=== PATIENT | female | born 1955 | race Caucasian/White ===

== ENCOUNTER → 2018-07-11 | Outpatient (CLI) | payer BC ==
--- NOTE | 2018-07-12 11:03 | MM ---
Reason for exam: screening (asymptomatic). Last mammogram was performed 3 years and 1 month ago. History: Patient is postmenopausal. Physical Findings: A clinical breast exam by your physician is recommended on an annual basis and results should be correlated with mammographic findings. MG 3D Screening Mammo W/Cad Bilateral CC and MLO view(s) were taken. Prior study comparison: June 12, 2015, bilateral MG screening mammo w CAD. The breast tissue is heterogeneously dense. This may lower the sensitivity of mammography. Tiny isodense circumscribed nodule medial and anterior. Not seen previously. Nodular asymmetric density central right CC view may persist on the 3D images. Mole on the left. ASSESSMENT: Incomplete: need additional imaging evaluation, BI-RAD 0 RECOMMENDATION: Special view mammogram of the right breast. (3D spots) If lesion persists on supplemental views, image directed ultrasound is recommended. [facility] will attempt to contact patient to return for supplemental views and ultrasound if indicated.
== END | disposition home or self-care (01) ==
LOC: RADMAMWWP 16:28
PROVIDERS: ATTEND Pediatrics
DX: Z12.31 Encounter for screening mammogram for malignant neoplasm of breast (principal)
CPT/HCPCS: 77063; 77067

== ENCOUNTER → 2018-08-26 | Outpatient (CLI) | payer BC ==
--- NOTE | 2018-08-29 11:58 | MM ---
Reason for exam: additional evaluation requested from abnormal screening. Last mammogram was performed 1 month ago. History: Patient is postmenopausal. Physical Findings: Nurse did not find any significant physical abnormalities on exam. MG 3D Work Up W/Cad RT CC and LM view(s) were taken of the right breast. Prior study comparison: July 11, 2018, bilateral MG 3d screening mammo w/cad. June 12, 2015, bilateral MG screening mammo w CAD. The breast tissue is heterogeneously dense. This may lower the sensitivity of mammography. The questioned asymmetry does not persist on additional views. These results were verbally communicated with the patient and result sheet given to the patient on 08/26/18. ASSESSMENT: Negative, BI-RAD 1 RECOMMENDATION: Return to routine screening mammogram schedule for both breasts.
== END | disposition home or self-care (01) ==
LOC: RADMAMWWP 08:46
PROVIDERS: ATTEND Pediatrics
DX: R92.8 Other abnormal and inconclusive findings on diagnostic imaging of breast (principal)
CPT/HCPCS: 77061; 77065

== ENCOUNTER → 2019-08-11 | Outpatient (CLI) | payer BC | END | disposition home or self-care (01) | LOC: LABWHC1 11:29 | PROVIDERS: ATTEND Pediatrics | DX: Z20.828 Contact with and (suspected) exposure to other viral communicable diseases (principal) ==

== ENCOUNTER 2021-09-02 03:54 | Inpatient (IN) | payer BC ==
--- NOTE | 2021-09-02 04:14 | ED ---
Chest Pain HPI - General Chief Complaint: Chest Pain Stated Complaint: Chest Pain Time Seen by Provider: 09/02/21 04:13 Source: patient, family Mode of arrival: ambulatory Limitations: no limitations - Related Data Home Medications Medication Instructions Recorded Confirmed Cetirizine HCl [Zyrtec] 10 mg PO DAILY 04/19/15 04/29/15 Multivit with Calcium,Iron,Min 1 tab PO DAILY 04/19/15 04/29/15 [Women's Daily Multivitamin] Previous Rx's Medication Instructions Recorded Acetaminophen-Codeine 300-30mg 1 each PO Q4HR PRN #30 tab 04/30/15 [Tylenol w/codeine #3] Ibuprofen [Motrin] 600 mg PO Q6HR PRN #60 tab 04/30/15 Allergies Allergy/AdvReac Type Severity Reaction Status Date / Time bee pollen Allergy Anaphylaxis Verified 09/02/21 04:02 Latex, Natural Rubber Allergy mouth Verified 09/02/21 04:02 swelling, dyspnea sulfamethoxazole Allergy Rash/Hives Verified 09/02/21 04:02 [From Bactrim] trimethoprim [From Bactrim] Allergy Rash/Hives Verified 09/02/21 04:02 morphine AdvReac Nausea & Verified 09/02/21 04:02 Vomiting Review of Systems ROS Statement: Those systems with pertinent positive or pertinent negative responses have been documented in the HPI. ROS Other: All systems not noted in ROS Statement are negative. EKG Findings - EKG Comments: EKG Findings:: EKG shows sinus rhythm 64 RI 190 QRS 90 QTC 4:[address] elevation 2 3 aVF Past Medical History Past Medical History: Osteoarthritis (OA) Additional Past Medical History / Comment(s): hx. irregular heartbeat-used to take toprol History of Any Multi-Drug Resistant Organisms: None Reported Past Surgical History: Orthopedic Surgery Additional Past Surgical History / Comment(s): arthroscopies knees, D & C x2 Past Anesthesia/Blood Transfusion Reactions: No Reported Reaction Past Psychological History: No Psychological Hx Reported Smoking Status: Never smoker Past Alcohol Use History: Occasional Past Drug Use History: None Reported - Past Family History Mother Family Medical History: No Reported History General Exam Limitations: no limitations Course Vital Signs 09/02/21 03:58 Temperature 97.8 F Pulse Rate 63 Respiratory 20 Rate Blood Pressure 166/77 O2 Sat by Pulse 100 Oximetry Critical Care Time Critical Care Time: Yes Total Critical Care Time: 31 Disposition Clinical Impression: ST elevation myocardial infarction (STEMI), Chest pain Disposition: ADMITTED IP TO THIS HOSP Condition: Serious Is patient prescribed a controlled substance at d/c from ED?: No Referrals: Terrance Mercer MD [Primary Care Provider] - 1-2 days
[2021-09-02] MEDS ORDERED: ASPIRIN 81 MG PO STA (04:19)
[2021-09-02] MEDS ORDERED: HEPARIN SODIUM 1,000 UN/ML (10ML VL) IV ONE ×2 (04:19→05:20)
[2021-09-02] MEDS ORDERED: NITROGLYCERIN SL TABS 0.4 MG TAB SUBLINGUAL PRN ×2 (04:19→06:49)
[2021-09-02] MEDS ORDERED: HEPARIN SOD,PORK IN 0.45% NACL 25,000 UNIT in 0.45% NACL 1 250ML.BAG IV SCH (04:30)
[2021-09-02 04:35] LABS: Basophils % (A) 1 %; Eosinophils # (A) 0.1 k/uL (0-0.7); Eosinophils % (A) 2 %; Lymphocytes # (A) 2.7 k/uL (1.0-4.8); Lymphocytes % (A) 39 %; MCH 30.1 pg (25.0-35.0); MCHC 34.1 g/dL (31.0-37.0); MCV 88.2 fL (80.0-100.0); Monocytes # (A) 0.3 k/uL (0-1.0); Monocytes % (A) 5 %; Neutrophils # (A) 3.6 k/uL (1.3-7.7); Neutrophils % (A) 51 %; Platelet Count 286 k/uL (150-450); RBC 4.65 m/uL (3.80-5.40); RDW 13.2 % (11.5-15.5)
[2021-09-02 04:43] LABS: INR 0.9 (<1.2); Partial Thromboplastin Time 24.4 sec (22.0-30.0); Prothrombin Time 10.3 sec (9.0-12.0)
[2021-09-02 04:50] LABS: ALT 29 U/L (4-34); AST 40 U/L (14-36); African American GFR (CKD) >90 (>60 ml/min/1.73 sqM); Albumin 4.6 g/dL (3.5-5.0); Alkaline Phosphatase 44 U/L (38-126); Anion Gap 7 mmol/L; Blood Urea Nitrogen 18 mg/dL (7-17); Calcium 9.3 mg/dL (8.4-10.2); Carbon Dioxide 27 mmol/L (22-30); Chloride 104 mmol/L (98-107); Glucose 115 mg/dL (74-99); Lipase 105 U/L (23-300); Magnesium 1.9 mg/dL (1.6-2.3); Non-African American GFR(CKD) >90 (>60 ml/min/1.73 sqM); Potassium 4.1 mmol/L (3.5-5.1); Sodium 138 mmol/L (137-145); Total Bilirubin 0.6 mg/dL (0.2-1.3); Total Protein 7.6 g/dL (6.3-8.2)
[2021-09-02] MEDS ORDERED: IV FLUID CONTINUATION 1,000 ML IV ONE (04:52)
[2021-09-02] MEDS ORDERED: VERAPAMIL 2.5 MG/ML 2 ML AMP ONE (04:54)
[2021-09-02] MEDS ORDERED: HEPARIN SODIUM 1,000 UN/ML (10ML VL) ONE (04:54)
[2021-09-02] MEDS ORDERED: fentaNYL (PF) 50 MCG/ML 2 ML AMP ONE (04:54)
[2021-09-02] MEDS ORDERED: LIDOCAINE 1% INJ 10MG/ML (5 ML VIAL-PF) SQ ONE (05:07)
[2021-09-02] MEDS ORDERED: fentaNYL (PF) 50 MCG/ML 2 ML AMP IV ONE (05:08)
[2021-09-02] MEDS ORDERED: LIDOCAINE 1% INJ 10MG/ML (30 ML VIAL-PF) SQ ONE (05:13)
--- NOTE | 2021-09-02 05:16 | XR ---
EXAM: XR Chest, 1 View CLINICAL HISTORY: chest pain TECHNIQUE: Frontal view of the chest. COMPARISON: No relevant prior studies available. FINDINGS: Lungs: Unremarkable. No consolidation. Pleural space: Unremarkable. No pneumothorax. Heart: Unremarkable. No cardiomegaly. Mediastinum: Unremarkable. Bones/joints: Unremarkable. IMPRESSION: No radiographic evidence of acute cardiopulmonary process, allowing for portable technique.
[2021-09-02] MEDS ORDERED: PRASUGREL 10 MG TAB PO ONE (05:21)
[2021-09-02] MEDS ORDERED: PRASUGREL 10 MG TAB ONE (05:21)
[2021-09-02] MEDS ORDERED: NITROGLYCERIN 1000MCG/10ML SYRINGE INTRACORON ONE (05:24)
[2021-09-02] MEDS ORDERED: NITROGLYCERIN SL TABS 0.4 MG TAB SUBLINGUAL ONE ×2 (05:40→05:41)
[2021-09-02] MEDS ORDERED: IOPAMIDOL-370 125ML BTL INJ ONE (05:41)
[2021-09-02] MEDS ORDERED: IOPAMIDOL-370 100ML BTL INJ ONE (06:07)
--- NOTE | 2021-09-02 06:28 | P.CRDCN ---
History of Present Illness Consult date: 09/02/21 History of present illness: History of Present Illness: The patient is a 66-year-old male with no history of cardiac disease who presented to the emergency room with symptoms of chest discomfort. The discomfort started 3 days ago, worse today on presentation to the emergency room she had ST segment elevation in the inferior leads consistent inferior wall myocardial infarction. She had mild dyspnea with it but no dizziness, palpitations or syncope. She is usually active physically without any exertional chest discomfort or dyspnea. She has no PND, orthopnea or peripheral edema. She has no history of hypertension, hyperlipidemia or diabetes. She is a nonsmoker. She is a family history of premature CAD. Medications: Zyrtec on a when necessary basis and Motrin on a when necessary basis Review of Systems: Respiratory: No history of asthma, bronchitis or recent cough. GI: No nausea or vomiting . No history of peptic ulcer disease. No recent GI bleed. : No hematuria or dysuria. Nervous System: No stroke or seizure. Physical Examination: 66-year-old female alert and oriented in mild discomfort, evaluated in the cardiac catheterization laboratory ,Blood pressure 172/70, Heart rate 72 Head: Normocephalic. Eyes: Sclerae nonicteric. Neck: Good carotid upstroke, no bruit, no jugular venous distention. Lungs: Clear to auscultation. Heart: Regular rate and rhythm, S1-S2, no S3, no rub. No murmur. Abdomen: Soft nontender, positive bowel sounds no organomegaly. Extremities: No edema, intact distal pulses. Labs: Hemoglobin of 14, BUN 18, creatinine 0.7, troponin less than 0.012, NT proBNP 402 EKG: Sinus mechanism with ST segment elevation in leads 2, [address] segment depression and T-wave inversion in 1 and aVL and V2 and V3 consistent with inferior posterior myocardial infarction. Impression: 1. Acute inferior wall myocardial infarction 2. History of ALLERGY Plan: 1. Proceed with emergent cardiac catheterization, the procedure as well as the risks and the complications were discussed with the patient and she was in full understanding and agreement 2. Obtain an echocardiogram with Doppler 3. Aggressive coronary risks modification 4. Depending on her progress and the finding of her cardiac catheterization further recommendations will be made 5. Thank you for this consult we will follow with you Past Medical History Past Medical History: Osteoarthritis (OA) Additional Past Medical History / Comment(s): hx. irregular heartbeat-used to take toprol History of Any Multi-Drug Resistant Organisms: None Reported Past Surgical History: Orthopedic Surgery Additional Past Surgical History / Comment(s): arthroscopies knees, D & C x2 Past Anesthesia/Blood Transfusion Reactions: No Reported Reaction Past Psychological History: No Psychological Hx Reported Smoking Status: Never smoker Past Alcohol Use History: Occasional Past Drug Use History: None Reported - Past Family History Mother Family Medical History: No Reported History Medications and Allergies Home Medications Medication Instructions Recorded Confirmed Type Cetirizine HCl [Zyrtec] 10 mg PO DAILY 04/19/15 04/29/15 History Multivit with Calcium,Iron,Min 1 tab PO DAILY 04/19/15 04/29/15 History [Women's Daily Multivitamin] Acetaminophen-Codeine 300-30mg 1 each PO Q4HR PRN #30 tab 04/30/15 Rx [Tylenol w/codeine #3] Ibuprofen [Motrin] 600 mg PO Q6HR PRN #60 tab 04/30/15 Rx Allergies Allergy/AdvReac Type Severity Reaction Status Date / Time bee pollen Allergy Anaphylaxis Verified 09/02/21 04:02 Latex, Natural Rubber Allergy mouth Verified 09/02/21 04:02 swelling, dyspnea sulfamethoxazole Allergy Rash/Hives Verified 09/02/21 04:02 [From Bactrim] trimethoprim [From Bactrim] Allergy Rash/Hives Verified 09/02/21 04:02 morphine AdvReac Nausea & Verified 09/02/21 04:02 Vomiting Physical Exam Vitals: Vital Signs Temp Pulse Resp BP Pulse Ox 09/02/21 04:40 75 14 172/75 09/02/21 04:35 72 16 172/75 09/02/21 04:30 73 18 195/88 09/02/21 04:25 195/88 09/02/21 04:23 195/88 09/02/21 03:58 97.8 F 63 20 166/77 100 Intake and Output 09/01/21 09/01/21 09/02/21 14:59 22:59 06:59 Intake Total 100 Balance 100 Intake: IV 100 Other: Weight 67.585 kg Results 09/02/21 04:24 09/02/21 04:24 Cardiac Enzymes 09/02/21 09/02/21 Range/Units 04:24 04:24 AST 40 H (14-36) U/L Troponin I <0.012 (0.000-0.034) ng/mL Coagulation 09/02/21 Range/Units 04:24 PT 10.3 (9.0-12.0) sec APTT 24.4 (22.0-30.0) sec CBC 09/02/21 Range/Units 04:24 WBC 7.0 (3.8-10.6) k/uL RBC 4.65 (3.80-5.40) m/uL Hgb 14.0 (11.4-16.0) gm/dL Hct 41.0 (34.0-46.0) % Plt Count 286 (150-450) k/uL Comprehensive Metabolic Panel 09/02/21 Range/Units 04:24 Sodium 138 (137-145) mmol/L Potassium 4.1 (3.5-5.1) mmol/L Chloride 104 (98-107) mmol/L Carbon Dioxide 27 (22-30) mmol/L BUN 18 H (7-17) mg/dL Creatinine 0.70 (0.52-1.04) mg/dL Glucose 115 H (74-99) mg/dL Calcium 9.3 (8.4-10.2) mg/dL AST 40 H (14-36) U/L ALT 29 (4-34) U/L Alkaline Phosphatase 44 (38-126) U/L Total Protein 7.6 (6.3-8.2) g/dL Albumin 4.6 (3.5-5.0) g/dL Current Medications Generic Name Dose Route Start Last Admin Trade Name Freq PRN Reason Stop Dose Admin Aspirin 325 mg 09/03/21 09:00 Aspirin 325 Mg Tab PO DAILY [facility] Atorvastatin Calcium 80 mg 09/02/21 09:00 Atorvastatin 80 Mg Tab PO DAILY [facility] Heparin Sodium/Sodium Chloride 250 mls @ 8.11 mls/hr 09/02/21 04:30 25,000 unit/ Sodium Chloride IV .Q24H [facility] Protocol 12 UNITS/KG/HR Nitroglycerin 0.4 mg 09/02/21 04:19 Nitroglycerin Sl Tabs 0.4 Mg Tab SUBLINGUAL Q5M PRN Chest Pain Intake and Output 09/01/21 09/01/21 09/02/21 14:59 22:59 06:59 Intake Total 100 Balance 100 Intake: IV 100 Other: Weight 67.585 kg Patient Weight 09/02/21 06:59 Weight 67.585 kg 09/02/21 04:24 09/02/21 04:24
--- NOTE | 2021-09-02 06:38 | P.CARDCATH ---
Date of Procedure: 09/02/21 Description of Procedure: Cardiac Catheterization: The patient is a 66-year-old female with no prior cardiac history who presented with an acute inferior wall myocardial infarction Recommendations were made regarding cardiac catheterization, the risks and the complications were discussed with the patient who is in full understanding and agreement. 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 Using Xylocaine Anesthesia and Seldinger technique, a 6-Mexican sheath was introduced in the right femoral artery, attempt to cannulate right radial artery was unsuccessful because of severe vasospasm . Subsequently, selective coronary angiography was performed using a 6-Mexican 4 bend right Gayle guiding catheter and left Gayle diagnostic catheter. Multiple views of the coronary artery including hemiaxial views were obtained. The 6-Mexican Pigtail catheter was used to cross the aortic valve and LVEDP was calculated. Following that, catheter and sheath were removed. Hemostasis was obtained with deployment of an Angio-Seal . There was no immediate complication. Patient was returned to room in stable condition. Of note, the patient received a total of 5000 units of intravenous heparin as well as loading dose of Effient. There was no immediate complications. Her ACT was monitored. Her chest discomfort and EKG changes improved. Findings: Left main: This is a size vessel, bifurcating into LAD and left circumflex, left main has no high-grade stenosis LAD: This is a size vessel, reaching to the apex, tapers down in the distal third gives rise to 3 diagonal branch. The proximal LAD has a percent stenosis there is another 50-60's percent stenosis in the mid segment, the rest of the vessel has no high-grade stenosis. Left circumflex: This is a nondominant vessel giving rise to 2 obtuse marginal branch left circumflex has no high-grade stenosis. RCA: This is a large dominant vessel bifurcating into PDA and PLV. Proximal RCA has a 60% plaque, the midsegment is diffusely diseased with an area of 99% stenosis in the distal segment has a 70% stenosis Left Ventriculogram: Not performed Hemodynamics: There was no gradient across the aortic valve Angioplasty: Using the 6-Mexican 4 bend right Gayle guiding catheter and after cannulating the right coronary ostium a 0.014 BMW J-wire was introduced and positioned distally subsequently a 2.5 x 12 mm Treck balloon was advanced and when inflation at 8 stephan was done after removing the balloon 3.0 x 38 mm Xience emmanuel point stent was deployed at 16 stephan, a 3.25 x 23 mm Xience emmanuel point stent was deployed proximal to the first one and dilated at 16 stephan and subsequently a 3.0 x 23 mm Xience emmanuel point was deployed distal to the first one and dilated at 16 stephan. After removing the balloon a [place] Eye IVUS catheter was introduced and imaging was performed, after removing the catheter is 3.75 x 20 mm NC Treck was advanced and multiple inflation at a maximum of 10 stephan were performed. After the last inflation and after appropriate wait the balloon and the wire were withdrawn back in the guiding catheter and images were performed, which revealed stable successful stenting, at that time the guiding catheter was removed and images of the left coronary system were obtained. Conclusion: 1. Subtotally occluded mid RCA with long segment of disease, post stenting with reduction of the stenosis from 99% to 0% 2. Moderate to significant disease in the proximal and mid LAD 3. No evidence of high-grade stenosis in the left circumflex Recommendations: The patient will be continued on dual antiplatelet treatment with a combination of aspirin and Effient for at least 1 year without any disruption. Aggressive coronary risks modification will be applied. The findings and recommendations were discussed with the patient was in full understanding and agreement. Duration of sedation is 60 minutes.
[2021-09-02 06:44] LABS: Glucose,Whole Blood 91 mg/dL (70-110)
[2021-09-02] MEDS ORDERED: ZOLPIDEM 5 MG TAB PO PRN (06:49)
[2021-09-02] MEDS ORDERED: MAG HYDROX/AL HYDROX/SIMETH 30 ML CUP PO PRN (06:49)
[2021-09-02] MEDS ORDERED: RX INFO: IV CONTRAST WAS GIVEN 1 EACH MISC MISCELLANE PRN (06:49)
[2021-09-02] MEDS ORDERED: ATROPINE SULFATE 0.1 MG/ML 10ML SYRINGE IV PRN (06:49)
[2021-09-02] MEDS ORDERED: SODIUM CHLORIDE 0.9% 1,000 ML in EMPTY BAG 1 BAG IV SCH (07:00)
[2021-09-02] MEDS: lisinopriL 5 MG TAB PO SCH (09:00)
[2021-09-02] MEDS: METOPROLOL TARTRATE 25 MG TAB PO SCH ×2 (09:00→20:11)
[2021-09-02] MEDS: ASPIRIN 81 MG PO SCH (09:00)
[2021-09-02] MEDS ORDERED: ATORVASTATIN 80 MG TAB PO SCH (09:00)
[2021-09-02 11:03] VITALS: BMI 25.5
--- NOTE | 2021-09-02 12:41 | CA ---
Transthoracic Echo Report Name: Josselin Colvin Age: 66 Gender: F : 1955 Exam Date: 09/02/2021 08:41 Exam Location: [facility] Ht (in): 64 Wt (lb): 149 Ordering Physician: Jaleel Hay MD ([id number]) Attending/Referring Phys: Funeral Home Manager Joy Tobias, ROBLES Procedure CPT: Indications: MA Cardiac Hx: Technical Quality: Good Contrast 1: Total Dose (mL): Contrast 2: Total Dose (mL): MEASUREMENTS (Male / Female) Normal Values 2D ECHO LV Diastolic Diameter PLAX 4.5 cm 4.2 - 5.9 / 3.9 - 5.3 cm LV Systolic Diameter PLAX 3.1 cm IVS Diastolic Thickness 0.7 cm 0.6 - 1.0 / 0.6 - 0.9 cm LVPW Diastolic Thickness 1.4 cm 0.6 - 1.0 / 0.6 - 0.9 cm LV Relative Wall Thickness 0.5 RV Internal Dim ED PLAX 2.8 cm LA Volume 55.1 cm??? 18 - 58 / 22 - 52 cm??? M-MODE Aortic Root Diameter MM 2.2 cm LA Systolic Diameter MM 2.7 cm LA Ao Ratio MM 1.2 MV E Point Septal Separation 1.2 cm AV Cusp Separation MM 1.4 cm DOPPLER MV Area PHT 3.5 cm??? Mitral E Point Velocity 50.9 cm/s Mitral A Point Velocity 81.8 cm/s Mitral E to A Ratio 0.6 MV Deceleration Time 214.4 ms MV E' Velocity 5.8 cm/s Mitral E to MV E' Ratio 8.7 TR Peak Velocity 211.0 cm/s TR Peak Gradient 17.8 mmHg Right Ventricular Systolic Press 22.8 mmHg FINDINGS Left Ventricle Normal Left ventricular size,mild wall thickness, left ventricular ejection fraction is estimated at 50-55%. Right Ventricle Normal right ventricular size and function. Right Atrium Normal right atrial size. Left Atrium Mildly increased left atrial volume. Mitral Valve Structurally normal mitral valve. Moderate mitral regurgitation. Aortic Valve Trileaflet aortic valve. Tricuspid Valve Structurally normal tricuspid valve. Pulmonic Valve Structurally normal pulmonic valve. Pericardium Normal pericardium. Aorta Normal size aortic root and proximal ascending aorta. CONCLUSIONS Normal left ventricular dimension and systolic function Moderate mitral regurgitation Previewed by: Dr. Chai Zhang MD (Electronically Signed) Final Date: 02 September 2021 12:40
--- NOTE | 2021-09-02 13:22 | P.HPIM ---
History of Present Illness H&P Date: 09/02/21 Chief Complaint: Chest pain This is a very pleasant 66-year-old patient who follows with Dr. Mercer. Usually in fairly good health. Around 1:00 this morning she has woken up with any of the left arm and also chest tightness. Pain was going on the left arm. And a slight headache. Some mild shortness of breath. [place] tired. Symptoms present for a few hours before came to the ER. Patient found to have ST elevation in the inferior leads. Successful stenting to the RCA. Postprocedure in the ICU. Currently tired. Chest pain-free. Son and [id number] at the bedside. No prior cardiac history. Review of systems: GEN.: Tired EYES: None HEENT: None NECK: None RESPIRATORY: None CARDIOVASCULAR: As above GASTROINTESTINAL: None GENITOURINARY: None MUSCULOSKELETAL: None LYMPHATICS: None HEMATOLOGICAL: None PSYCHIATRY: None NEUROLOGICAL: None 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 No smoking. Family history: Reviewed, noncontributory to presentation Physical examination: VITAL SIGNS: 98.3, 74, 19, 145/83, 99% room air GENERAL: BMI 25.6, But, awake, not in distress. EYES: Pupils equal. Conjunctiva normal. HEENT: External appearance of nose and ears normal, oral cavity grossly normal. NECK: JVD not raised; masses not palpable. HEART: First and second heart sounds are normal; no edema. LUNGS: Respiratory rate normal; clear to auscultation. ABDOMEN: Soft, nontender, liver spleen not palpable, no masses palpable. PSYCH: Alert and oriented x3; mood and affect normal. MUSCULOSKELETAL:No Clubbing/cyanosis;muscles-grossly intact. Some OA NEUROLOGICAL: Cranial nerves grossly intact; no facial asymmetry, power and sensation grossly intact. LYMPHATICS: No lymph nodes palpable in the axilla and neck INVESTIGATIONS, reviewed in the clinical context: 2-D echocardiogram: EF 50-55%. Moderate mitral regurgitation White count 17 hemoglobin 14 platelets 286 sodium 138 potassium 4.1 creatinine 0.7 Troponin I less than 0.012, 3.1 EKG tracing personally reviewed by me-ST elevation inferior leads Chest x-ray film personally reviewed by me: Lung sotelo clear Assessment and plan: -Acute ST elevation of the inferior wall Successful stenting of the RCA. -CAD Aspirin, Lipitor, Lopressor, Zestril, Effient -Primary osteoarthritis Tylenol as needed -Moderate mitral regurgitation Follow -Seasonal ALLERGIES cetrizine Care was discussed with the patient and the family at the bedside. Questions answered. Medications reviewed. Activity as tolerated. Past Medical History Past Medical History: Osteoarthritis (OA) Additional Past Medical History / Comment(s): hx. irregular heartbeat-used to take toprol History of Any Multi-Drug Resistant Organisms: None Reported Past Surgical History: Hysterectomy, Orthopedic Surgery Additional Past Surgical History / Comment(s): arthroscopies knees, D & C x2 Past Anesthesia/Blood Transfusion Reactions: No Reported Reaction Past Psychological History: No Psychological Hx Reported Smoking Status: Never smoker Past Alcohol Use History: Occasional Past Drug Use History: None Reported - Past Family History Mother Family Medical History: No Reported History Medications and Allergies Home Medications Medication Instructions Recorded Confirmed Type Cetirizine HCl [Zyrtec] 10 mg PO DAILY 04/19/15 09/02/21 History Allergies Allergy/AdvReac Type Severity Reaction Status Date / Time bee pollen Allergy Anaphylaxis Verified 09/02/21 08:03 Latex, Natural Rubber Allergy mouth Verified 09/02/21 08:03 swelling, dyspnea sulfamethoxazole Allergy Rash/Hives Verified 09/02/21 08:03 [From Bactrim] trimethoprim [From Bactrim] Allergy Rash/Hives Verified 09/02/21 08:03 morphine AdvReac Nausea & Verified 09/02/21 08:03 Vomiting Physical Exam Vitals: Vital Signs Temp Pulse Pulse Resp BP BP Pulse Ox 09/02/21 13:00 56 L 21 125/86 96 09/02/21 12:00 58 L 18 132/70 97 09/02/21 11:00 55 L 19 121/70 96 09/02/21 10:00 61 16 153/81 98 09/02/21 09:00 68 30 H 145/83 99 09/02/21 08:00 98.3 F 74 19 170/90 98 09/02/21 07:15 98.4 F 69 16 150/83 09/02/21 04:40 75 14 172/75 09/02/21 04:35 72 16 172/75 09/02/21 04:30 73 18 195/88 09/02/21 04:25 195/88 09/02/21 04:23 195/88 09/02/21 03:58 97.8 F 63 20 166/77 100 Intake and Output 09/01/21 09/02/21 09/02/21 22:59 06:59 14:59 Intake Total 100 690 Output Total 500 Balance 100 190 Intake: IV 100 Intake, IV Titration 340 Amount Sodium Chloride 0.9% 1, 340 000 ml In Empty Bag 1 bag @ 1 ML/KG/HR 67.585 mls/ hr IV .[id number] [facility] Rx#: [id number] Oral 350 Output: Urine 500 Other: Voiding Method Toilet # Voids 1 Weight 67.585 kg 67.585 kg Results CBC & Chem 7: 09/02/21 04:24 09/02/21 04:24 Labs: Abnormal Lab Results - Last 24 Hours (Table) 09/02/21 09/02/21 Range/Units 04:24 07:33 BUN 18 H (7-17) mg/dL Glucose 115 H (74-99) mg/dL AST 40 H (14-36) U/L Troponin I 3.140 H* (0.000-0.034) ng/mL Thrombosis Risk Factor Assmnt - Choose All That Apply Each Factor Represents 1 point: Acute CT Each Risk Factor Represents 2 Points: Age 61-74 years Thrombosis Risk Factor Assessment Total Risk Factor Score: 3 Thrombosis Risk Factor Assessment Level: Moderate Risk
[2021-09-02] MEDS: ATORVASTATIN 80 MG TAB PO SCH (20:11)
[2021-09-03 05:59] LABS: African American GFR (CKD) >90 (>60 ml/min/1.73 sqM); Anion Gap 5 mmol/L; Blood Urea Nitrogen 11 mg/dL (7-17); Calcium 8.8 mg/dL (8.4-10.2); Carbon Dioxide 28 mmol/L (22-30); Chloride 106 mmol/L (98-107); Glucose 97 mg/dL (74-99); Non-African American GFR(CKD) 85 (>60 ml/min/1.73 sqM); Sodium 139 mmol/L (137-145)
--- NOTE | 2021-09-03 08:02 | P.PN ---
Subjective History of Present Illness: The patient is a 66-year-old male with no history of cardiac disease who presented to the emergency room with symptoms of chest discomfort. The discomfort started 3 days ago, worse today on presentation to the emergency room she had ST segment elevation in the inferior leads consistent inferior wall myocardial infarction. She had mild dyspnea with it but no dizziness, palpitations or syncope. She is usually active physically without any exertional chest discomfort or dyspnea. She has no PND, orthopnea or peripheral edema. She has no history of hypertension, hyperlipidemia or diabetes. She is a nonsmoker. She is a family history of premature CAD. Medications: Zyrtec on a when necessary basis and Motrin on a when necessary basis 09/03 Patient seen and examined. Patient underwent PCI of the RCA yesterday successfully and denies any further chest pain similar to yesterday. She does have mild dull chest achiness however feels different than before. Denies any shortness breath. Echocardiogram was performed which shows EF 50-55% with moderate mitral regurgitation. Physical Examination: Vitals reviewed Head: Normocephalic. Eyes: Sclerae nonicteric. Neck: Good carotid upstroke, no bruit, no jugular venous distention. Lungs: Clear to auscultation. Heart: Regular rate and rhythm, S1-S2, no S3, no rub. No murmur. Abdomen: Soft nontender, positive bowel sounds no organomegaly. Extremities: No edema, intact distal pulses. Impression: 1. Acute inferior wall myocardial infarction, status post PCI of RCA 2. Hypertension 3. Hyperlipidemia 4. Family history of CAD 5. Moderate mitral regurgitation 6. CAD with residual 50-60% LAD stenosis Plan: Echocardiogram reviewed with predominantly preserved EF 50-55% with moderate mitral regurgitation. She is currently tolerating medications well. Atypical chest pain currently. Continue to monitor and increase activity as able. Right femoral site appears stable without hematoma. Hopeful discharge in next 24 hours if patient remains stable. Objective - Vital Signs Vital signs: Vital Signs Temp 98.2 F 09/03/21 04:00 Pulse 83 09/03/21 07:00 Resp 55 H 09/03/21 07:00 BP 138/63 09/03/21 07:00 Pulse Ox 97 09/03/21 07:00 FiO2 Intake & Output 09/02/21 09/03/21 09/03/21 18:59 06:59 18:59 Intake Total 1090 540 Output Total 750 400 600 Balance 340 140 -600 Weight 67.585 kg 72 kg Intake: Intake, IV Titration 340 Amount Sodium Chloride 0.9% 1, 340 000 ml In Empty Bag 1 bag @ 1 ML/KG/HR 67.585 mls/ hr IV .[id number] [facility] Rx#: [id number] Oral 750 540 Output: Urine 750 400 600 Other: Voiding Method Toilet Toilet # Voids 0 0 1 - Labs CBC & Chem 7: 09/02/21 04:24 09/03/21 05:28 Labs: Abnormal Lab Results - Last 24 Hours (Table) 09/02/21 09/02/21 Range/Units 07:33 11:16 Troponin I 3.140 H* 10.300 H* (0.000-0.034) ng/mL
[2021-09-03] MEDS: METOPROLOL TARTRATE 25 MG TAB PO SCH ×2 (08:08→20:20)
[2021-09-03] MEDS: PRASUGREL 10 MG TAB PO SCH (08:08)
[2021-09-03] MEDS: ASPIRIN 81 MG PO SCH (08:08)
[2021-09-03] MEDS ORDERED: ASPIRIN 325 MG TAB PO SCH (09:00)
[2021-09-03] MEDS: lisinopriL 5 MG TAB PO SCH (10:29)
[2021-09-03 10:47] LABS: Chol/HDL Ratio 4.24 Ratio; LDL Cholesterol,Calculated 122.5 mg/dL (0.0-131.0)
--- NOTE | 2021-09-03 13:06 | P.PN ---
Progress Note - Text Progress Note Date: 09/03/21 Chief Complaint: Chest pain This is a very pleasant 66-year-old patient who follows with Dr. Mercer. Usually in fairly good health. Around 1:00 this morning she has woken up with any of the left arm and also chest tightness. Pain was going on the left arm. And a slight headache. Some mild shortness of breath. [place] tired. Symptoms present for a few hours before came to the ER. Patient found to have ST elevation in the inferior leads. Successful stenting to the RCA. Postprocedure in the ICU. Currently tired. Chest pain-free. Son and [id number] at the bedside. No prior cardiac history. September 03: ICU. Has been up to the bathroom. No chest pain or shortness of breath. No dyspnea reported. Discussed with the patient has been at the bedside. Active Medications Al Hydroxide/Mg Hydroxide (Mag Hydrox/Al Hydrox/Simeth 30 Ml Cup) 30 ml PO Q4HR PRN PRN Reason: Heartburn Aspirin (Aspirin 81 Mg) 81 mg PO DAILY [facility] Last Admin: 09/03/21 08:08 Dose: 81 mg Atorvastatin Calcium (Atorvastatin 80 Mg Tab) 80 mg PO HS [facility] Last Admin: 09/02/21 20:11 Dose: 80 mg Atropine Sulfate (Atropine Sulfate 0.1 Mg/Ml 10ml Syringe) 0.5 mg IV ONCE PRN PRN Reason: Symptomatic Bradycardia Lisinopril (Lisinopril 5 Mg Tab) 5 mg PO DAILY [facility] Last Admin: 09/03/21 10:29 Dose: 5 mg Metoprolol Tartrate (Metoprolol Tartrate 25 Mg Tab) 25 mg PO BID [facility] Last Admin: 09/03/21 08:08 Dose: 25 mg Miscellaneous Information (Rx Info: Iv Contrast Was Given 1 Each Misc) 1 each MISCELLANE DAILY PRN PRN Reason: Per Protocol Stop: 09/04/21 06:49 Nitroglycerin (Nitroglycerin Sl Tabs 0.4 Mg Tab) 0.4 mg SUBLINGUAL Q5M PRN PRN Reason: Chest Pain Nitroglycerin (Nitroglycerin Sl Tabs 0.4 Mg Tab) 0.4 mg SUBLINGUAL Q5M PRN PRN Reason: Chest Pain Prasugrel (Prasugrel 10 Mg Tab) 10 mg PO DAILY [facility]; Protocol Last Admin: 09/03/21 08:08 Dose: 10 mg Zolpidem Tartrate (Zolpidem 5 Mg Tab) 5 mg PO HS PRN PRN Reason: Insomnia 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 No smoking. Family history: Reviewed, noncontributory to presentation Physical examination: VITAL SIGNS: 98.5, 70, 26, 121/60, 97% room air GENERAL: Sitting up in bed, awake, comfortable EYES: Pupils equal. Conjunctiva normal. HEENT: External appearance of nose and ears normal, oral cavity grossly normal. NECK: JVD not raised; masses not palpable. HEART: First and second heart sounds are normal; no edema. LUNGS: Respiratory rate normal; clear to auscultation. ABDOMEN: Soft, nontender, liver spleen not palpable, no masses palpable. PSYCH: Alert and oriented x3; mood and affect normal. MUSCULOSKELETAL:No Clubbing/cyanosis;muscles-grossly intact. Some OA INVESTIGATIONS, reviewed in the clinical context: September 03: Potassium 4 creatinine 0.75 LDL 122 2-D echocardiogram: EF 50-55%. Moderate mitral regurgitation White count 17 hemoglobin 14 platelets 286 sodium 138 potassium 4.1 creatinine 0.7 Troponin I less than 0.012, 3.1, 10.3 EKG tracing personally reviewed by me-ST elevation inferior leads Chest x-ray film personally reviewed by me: Lung sotelo clear Assessment and plan: -Acute ST elevation of the inferior wall stenting of the RCA. -CAD Aspirin, Lipitor, Lopressor, Zestril, Effient -Primary osteoarthritis Tylenol as needed -Moderate mitral regurgitation Follow -Hyperlipidemia Lipitor -Seasonal ALLERGIES cetrizine Continue current medications. Discussed with patient has been at the bedside. Increase activity.
[2021-09-03] MEDS: ATORVASTATIN 80 MG TAB PO SCH (20:20)
[2021-09-04] MEDS: METOPROLOL TARTRATE 25 MG TAB PO SCH (08:22)
[2021-09-04] MEDS: ASPIRIN 81 MG PO SCH (08:22)
[2021-09-04] MEDS: lisinopriL 5 MG TAB PO SCH (08:22)
[2021-09-04] MEDS: PRASUGREL 10 MG TAB PO SCH (08:22)
[2021-09-04 08:59] VITALS: RESP 16; TEMP 98.4
[2021-09-04 12:01] VITALS: BP 130/73; PULSE 67
--- NOTE | 2021-09-04 12:35 | P.DS ---
Providers Date of admission: 09/02/21 04:19 Expected date of discharge: 09/04/21 Attending physician: Hubert Nguyễn Consults: 09/02/21 04:19 Consult Physician Urgent Consulting Provider: Jaleel Hay Consult Reason/Comments: stemi Do you want consulting provider notified?: Yes 09/02/21 06:49 Consult Physician Routine Consulting Provider: [facility] Consult Reason/Comments: Post Interventional Patient Do you want consulting provider notified?: Already Contacted Primary care physician: Terrance Mercer [facility] Course: Chief Complaint: Chest pain This is a very pleasant 66-year-old patient who follows with Dr. Mercer. Usually in fairly good health. Around 1:00 this morning she has woken up with any of the left arm and also chest tightness. Pain was going on the left arm. And a slight headache. Some mild shortness of breath. Lane tired. Symptoms present for a few hours before came to the ER. Patient found to have ST elevation in the inferior leads. Successful stenting to the RCA. Postprocedure in the ICU. Currently tired. Chest pain-free. Son and [id number] at the bedside. No prior cardiac history. September 03: ICU. Has been up to the bathroom. No chest pain or shortness of breath. No dyspnea reported. Discussed with the patient has been at the bedside. September 04: Doing well. Up and about. No cardiac symptoms. Discussed with the patient has been at the bedside. Discussed with Dr. Rogers from cardiology. Stable for discharge. 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 No smoking. Family history: Reviewed, noncontributory to presentation Physical examination: VITAL SIGNS: 98.4, 74, 16, 1:30/78, 98% room air GENERAL: Sitting up in bed, awake, comfortable EYES: Pupils equal. Conjunctiva normal. HEENT: External appearance of nose and ears normal, oral cavity grossly normal. NECK: JVD not raised; masses not palpable. HEART: First and second heart sounds are normal; no edema. LUNGS: Respiratory rate normal; clear to auscultation. ABDOMEN: Soft, nontender, liver spleen not palpable, no masses palpable. PSYCH: Alert and oriented x3; mood and affect normal. MUSCULOSKELETAL:No Clubbing/cyanosis;muscles-grossly intact. Some OA INVESTIGATIONS, reviewed in the clinical context: September 03: Potassium 4 creatinine 0.75 LDL 122 2-D echocardiogram: EF 50-55%. Moderate mitral regurgitation White count 17 hemoglobin 14 platelets 286 sodium 138 potassium 4.1 creatinine 0.7 Troponin I less than 0.012, 3.1, 10.3 EKG tracing personally reviewed by me-ST elevation inferior leads Chest x-ray film personally reviewed by me: Lung sotelo clear Assessment and plan: -Acute ST elevation of the inferior wall stenting of the RCA. -CAD Aspirin, Lipitor, Lopressor, Zestril, Effient -Primary osteoarthritis Tylenol as needed -Moderate mitral regurgitation Follow with cardiology -Hyperlipidemia Lipitor -Seasonal ALLERGIES cetrizine Disposition: Home Plan - Discharge Summary New Discharge Prescriptions: New Aspirin 81 mg PO DAILY #30 tab Metoprolol Tartrate [Lopressor] 25 mg PO BID #30 tab lisinopriL [Zestril] 5 mg PO DAILY #30 tab Prasugrel [Effient] 10 mg PO DAILY #30 tab Atorvastatin [Lipitor] 80 mg PO HS #30 tab Nitroglycerin Sl Tabs [Nitrostat] 0.4 mg SUBLINGUAL Q5M PRN #30 tab PRN Reason: Chest Pain Continue Cetirizine HCl [Zyrtec] 10 mg PO DAILY Discharge Medication List Cetirizine HCl [Zyrtec] 10 mg PO DAILY 04/19/15 [History] Aspirin 81 mg PO DAILY #30 tab 09/04/21 [Rx] Atorvastatin [Lipitor] 80 mg PO HS #30 tab 09/04/21 [Rx] Metoprolol Tartrate [Lopressor] 25 mg PO BID #30 tab 09/04/21 [Rx] Nitroglycerin Sl Tabs [Nitrostat] 0.4 mg SUBLINGUAL Q5M PRN #30 tab 09/04/21 [Rx] Prasugrel [Effient] 10 mg PO DAILY #30 tab 09/04/21 [Rx] lisinopriL [Zestril] 5 mg PO DAILY #30 tab 09/04/21 [Rx] Follow up Appointment(s)/Referral(s): Jaleel Hay MD [STAFF PHYSICIAN] - 1 Week Terrance Mercer MD [Primary Care Provider] - 1-2 days Patient Instructions/Handouts: Heart Attack (DC), Left Heart Catheterization (DC), Left Heart Catheterization (GEN) Activity/Diet/Wound Care/Special Instructions: Cardiology Instructions After Cardiac Catheterization with Stent Placement: 1. Aspirin as anti-platelet therapy - Aspirin lessens the chance of heart attack and stroke. It helps prevent blood clots from forming, allowing the blood to flow more easily. Each day, you will take one 81 mg (non-enteric coated) tablet daily. You will be taking aspirin as a lifelong medication. Do not stop unless instructed by your doctor. 2. Anti-platelet Therapy. -In addition to aspirin, you will take ONE of the following anti-platelet medications daily. This will help prevent a clot from forming in your stent: Effient (prasugrel) -You will need to take your anti-platelet medicine every day for 12 months -Please consult your heart doctor before you stop this medicine. -They may want you to continue for a longer period of time. 3. Statins -A statin medication lowers cholesterol levels in the blood. This helps slow the progression of heart disease. - Please take your statin medication as prescribed by your doctor. -You may be taking one of the following statins: Lipitor (atorvastatin) Other Medications: -ACEI/ Angiotensin II Receptor Ivy (Lisinopril = Your medication) can help your heart work better after a heart attack and decrease the amount of damage from a heart attack -Beta ivy. (Your medicatino Metoprolol tartrate) Is a medication that protects your heart from stress and can prevent future heart attacks. It can slow your heart rate. It can take weeks for your body to get used to a beta ivy. The dose may need to be changed a few times as your body adjusts Do not stop taking these medicines without talking to your doctor. -Take all other medicines as directed by your doctor. Do not take any extra aspirin or ibuprofen. They can increase your risk of bleeding. Many [id number]-cgo-[id number] drugs contain aspirin. If you are unsure about what the drug contains, check with your pharmacist before taking it. -For mild discomfort, you may take plain Tylenol (acetaminophen). Follow dose directions, but do not take more than 4,000 mg of acetaminophen in 24 hours. Contact your doctor right away or go to the nearest hospital Emergency Room if you have: -Severe angina or chest pain. (This may be a sign of a problem with your stent.) -Excessive bruising, blood in urine/stool or black tarry stools. Healthy LifeStyle It is important to keep a heart healthy lifestyle. This can improve your long- term health and decrease your risk for heart attacks. -Managing your blood cholesterol, blood pressure, weight, and stress. -The importance of regular exercise. -Heart Healthy Diet: Include more plants in your diet. Eat lots of fresh vegetables and fresh fruits. Eat good fats: plant based oils, avocado, nuts, beans, legumes. Eat more seafood. Limit Meat. Switch to whole grains. -Avoid fried foods and animal fats and processed meats Follow up with [facility], [place] [phone]
--- NOTE | 2021-09-04 14:16 | P.PN ---
Subjective The patient is a 66-year-old male with no history of cardiac disease, does not follow with a religious educator. Presented to the emergency room with symptoms of chest discomfort. The discomfort started 3 days prior to admission, worse on presentation to the emergency room. She had ST segment elevation in the inferior leads consistent inferior wall myocardial infarction. She had mild dyspnea with it but no dizziness, palpitations or syncope. She is usually active physically without any exertional chest discomfort or dyspnea. She has no PND, orthopnea or peripheral edema. She has no history of hypertension, hyperlipidemia or diabetes. She is a nonsmoker. She is a family history of premature CAD. Medications at home were Zyrtec on a when necessary basis and Motrin on a when necessary basis. On 09/02/2021 Patient underwent PCI of the RCA successfully 09/04/2021 Patient seen and examined at bedside, no acute distress, Denies any further chest pain. No shortness of breath. SHe is ambulating her room and halls without difficulty. Echocardiogram was performed which shows EF 50-55% with moderate mitral regurgitation. Vital signs are stable. Physical Examination: Vitals reviewed Head: Normocephalic. Eyes: Sclerae nonicteric. Neck: Good carotid upstroke, no bruit, no jugular venous distention. Lungs: Clear to auscultation. Heart: Regular rate and rhythm, S1-S2, no S3, no rub. Abdomen: Soft nontender, positive bowel sounds no organomegaly. Extremities: No edema, intact distal pulses. ASSESSMENT Acute inferior wall myocardial infarction, status post PCI of RCA Hypertension Hyperlipidemia Family history of CAD Moderate mitral regurgitation Coronary artery disease with residual 50-60% LAD stenosis PLAN Continue dual antiplatelet therapy with aspirin and Effient for at least 12 months. Continue atorvastatin, lisinopril, metoprolol tartrate From a cardiology perspective, patient is stable for discharge from cardiology perspective. Follow-up blood pressure with Dr. Hay in one week Nurse practitioner note has been reviewed by physician. Signing provider agrees with the documented findings, assessment, and plan of care. Objective - Vital Signs Vital signs: Vital Signs Temp 98.4 F 09/04/21 08:15 Pulse 67 09/04/21 11:15 Resp 16 09/04/21 11:15 BP 130/73 09/04/21 11:15 Pulse Ox 100 09/04/21 11:15 FiO2 Intake & Output 09/03/21 09/04/21 09/04/21 18:59 06:59 18:59 Intake Total 570 478 Output Total 1075 Balance -505 478 Intake: Oral 450 478 Tube Feeding 120 Output: Urine 1075 Other: Voiding Method Toilet Toilet Urinal # Voids 1 1 1 - Labs CBC & Chem 7: 09/02/21 04:24 09/03/21 05:28
== END 2021-09-04 15:00 | disposition home or self-care (01) | DRG 247 ==
LOC: EC 03:54 → 2SICU 04:19 → 3SCARD 09-03 17:59
PROVIDERS: ADMIT Hospitalist; ATTEND Hospitalist
PROC: 027035Z Dilation of Coronary Artery, One Artery with Two Drug-eluting Intraluminal Devices, Percutaneous Approach (ICD-10-PCS; principal; 2021-09-02 04:43)
PROC: 4A023N7 Measurement of Cardiac Sampling and Pressure, Left Heart, Percutaneous Approach (ICD-10-PCS; 2021-09-02 04:43)
PROC: B2111ZZ Fluoroscopy of Multiple Coronary Arteries using Low Osmolar Contrast (ICD-10-PCS; 2021-09-02 04:43)
DX: I21.19 ST elevation (STEMI) myocardial infarction involving other coronary artery of inferior wall (principal); I34.0 Nonrheumatic mitral (valve) insufficiency; I10 Essential (primary) hypertension; E78.5 Hyperlipidemia, unspecified; I49.9 Cardiac arrhythmia, unspecified; M19.91 Primary osteoarthritis, unspecified site; J30.2 Other seasonal allergic rhinitis; I25.119 Atherosclerotic heart disease of native coronary artery with unspecified angina pectoris; Z91.030 Bee allergy status; Z91.040 Latex allergy status; Z88.2 Allergy status to sulfonamides; Z88.1 Allergy status to other antibiotic agents; Z88.5 Allergy status to narcotic agent; Z82.49 Family history of ischemic heart disease and other diseases of the circulatory system; Z90.710 Acquired absence of both cervix and uterus; Z98.890 Other specified postprocedural states; Z79.899 Other long term (current) drug therapy
CPT/HCPCS: 71045; 80048; 80053; 80061; 83690; 83735; 83880; 84484; 85025; 85610; 85730; 92978; 93005; 93306; 93458; 96374; 99291

== ENCOUNTER → 2021-09-16 | Outpatient (CLI) | payer BC ==
[2021-09-16 22:34] LABS: HCT 35.2 % (37.2-46.3); MCHC 31.3 g/dL (32.0-37.0); MCV 89.6 fL (80.0-97.0); Mean Platelet Volume 10.2 fL (9.5-12.2); NRBC Per 100 WBC 0 /100 WBCS (0.0-0.0); Platelet Count 287 X 10*3/uL (140-440); RBC 3.93 X 10*6/uL (4.10-5.20); RDW 12.9 % (11.5-14.5); WBC 6.18 X 10*3/uL (4.50-10.00)
[2021-09-16 22:49] LABS: African American GFR (CKD) 96.1 (60.0-200.0); Anion Gap 10.9 mmol/L (10.00-18.00); Blood Urea Nitrogen 15.8 mg/dL (9.0-27.0); Carbon Dioxide 26.4 mmol/L (20.0-27.5); Non-African American GFR(CKD) 82.9 (60.0-200.0); Potassium 4.3 mmol/L (3.5-5.5)
== END | disposition home or self-care (01) ==
LOC: LABPAT 14:12
PROVIDERS: ATTEND Internal Medicine Interventional Cardiology
DX: Z01.812 Encounter for preprocedural laboratory examination (principal); I25.10 Atherosclerotic heart disease of native coronary artery without angina pectoris; R07.9 Chest pain, unspecified
CPT/HCPCS: 80051; 82565; 84520; 85027

== ENCOUNTER 2021-09-23 05:59 | Day surgery (SDC) | payer BC ==
[2021-09-19 13:39] VITALS: BMI 25.7
[~2021-09-23 05:59] MED LIST: ALPRAZolam 0.25 MG TAB PO PRN; ALPRAZolam 0.5 MG TAB PO PRN; ASPIRIN 325 MG TAB PO STA; ATORVASTATIN 80 MG TAB PO STA; HEPARIN SODIUM,PORCINE 10,000 UNIT in SODIUM CHLORIDE 0.9% 1,000 ML IRRIGATION PRN; HEPARIN SODIUM,PORCINE 2,500 UNIT in SODIUM CHLORIDE 0.9% 250 ML IRRIGATION PRN; NITROGLYCERIN SL TABS 0.4 MG TAB SUBLINGUAL PRN; SODIUM CHLORIDE 0.9% 1,000 ML in EMPTY BAG 1 BAG IV SCH
[2021-09-23] MEDS ORDERED: PRASUGREL 10 MG TAB PO STA (06:27)
[2021-09-23 06:51] VITALS: TEMP 98.2
[2021-09-23] MEDS ORDERED: METOPROLOL TARTRATE 25 MG TAB PO STA (07:01)
[2021-09-23] MEDS ORDERED: VERAPAMIL 2.5 MG/ML 2 ML AMP ONE (07:20)
[2021-09-23] MEDS ORDERED: fentaNYL (PF) 50 MCG/ML 2 ML AMP ONE (07:36)
[2021-09-23] MEDS ORDERED: fentaNYL (PF) 50 MCG/ML 2 ML AMP IV ONE (07:39)
[2021-09-23] MEDS ORDERED: LIDOCAINE 1% INJ 10MG/ML (5 ML VIAL-PF) SQ ONE (07:41)
[2021-09-23] MEDS ORDERED: VERAPAMIL SYRINGE (5 MG/10 ML) INTRAARTER ONE (07:43)
[2021-09-23] MEDS ORDERED: HEPARIN SODIUM 1,000 UN/ML (10ML VL) ONE (07:45)
[2021-09-23] MEDS ORDERED: NITROGLYCERIN SL TABS 0.4 MG TAB SUBLINGUAL ONE (07:45)
[2021-09-23] MEDS ORDERED: HEPARIN SODIUM 1,000 UN/ML (10ML VL) IV ONE (07:46)
[2021-09-23] MEDS ORDERED: NITROGLYCERIN 1000MCG/10ML SYRINGE INTRACORON ONE (07:57)
[2021-09-23] MEDS ORDERED: IOPAMIDOL-370 125ML BTL INJ ONE (08:11)
[2021-09-23] MEDS ORDERED: IOPAMIDOL-370 100ML BTL INJ ONE (08:23)
[2021-09-23] MEDS ORDERED: NITROGLYCERIN SL TABS 0.4 MG TAB SUBLINGUAL PRN (08:36)
[2021-09-23] MEDS ORDERED: RX INFO: IV CONTRAST WAS GIVEN 1 EACH MISC MISCELLANE PRN (08:36)
[2021-09-23] MEDS ORDERED: ATROPINE SULFATE 0.1 MG/ML 10ML SYRINGE IV PRN (08:36)
[2021-09-23] MEDS ORDERED: ZOLPIDEM 5 MG TAB PO PRN (08:36)
[2021-09-23] MEDS ORDERED: MAG HYDROX/AL HYDROX/SIMETH 30 ML CUP PO PRN (08:36)
[2021-09-23] MEDS ORDERED: SODIUM CHLORIDE 0.9% 1,000 ML in EMPTY BAG 1 BAG IV SCH (08:45)
--- NOTE | 2021-09-23 08:46 | P.CARDCATH ---
Date of Procedure: 09/23/21 Description of Procedure: Cardiac Catheterization: The patient is a 66-year-old female with known history of hyperlipidemia who presented recently with acute inferior wall myocardial infarction underwent stenting of the RCA. She was found to have moderate to severe stenosis involving the proximal and mid LAD. She has been complaining of episodes of chest discomfort. Recommendations were made regarding cardiac catheterization, the risks and the complications were discussed with the patient who is in full understanding and agreement. Procedure Description: Patient was brought to clinical lab scientist in fasting semi-sedated state after receiving Fentanyl and Benadryl achieiving moderate conscious sedated state. Using Xylocaine Anesthesia and Seldinger technique, a 6-Kuwaiti sheath was introduced in the right radial artery . Subsequently, selective coronary angiography was performed using a 5-Kuwaiti 4 bend right Gayle and 6-Kuwaiti CLS 3.5 guiding catheter. Multiple views of the coronary artery including hemiaxial views were obtained. The 5-Ku[place]i Pigtail catheter was used to cross the aortic valve and LVEDP was calculated. Following that, catheter and sheath were removed. Hemostasis was obtained with deployment of TR band . There was no immediate complication. Patient was returned to room in stable condition. Of note, the patient received a total of 5000 units of intravenous heparin as well as intra-arterial verapamil. She was continued on Effient. Her ACT was followed. She had chest discomfort and EKG changes with the inflations that resolved at the end of the procedure. Angioplasty and stenting: After cannulating the left main, a 0.014 BMW J-wire was advanced into the distal LAD and a 2.5 x 12 mm NC Treck was advanced into inflation at 8 stephan were done, subsequently a 3.0 x 18 mm Xience emmanuel point stent was advanced, and deployed at 16 stephan, after removing the balloon is 3.0 x 15 mm Xience emmanuel point stent was deployed proximally at 16 stephan, after removing the balloon a 3.25 x 12 mm NC Treck balloon was advanced and one inflation at 12 stephan was done. Findings: Left main: This is a large size vessel, bifurcating into LAD and left circumflex, left main has no evidence of high-grade stenosis LAD: This is a large size vessel, reaching to the apex with a wrap around the apex segment, giving rise to 3 diagonal branch. The proximal LAD has an eccentric 70% stenosis in the mid LAD has an 80% stenosis. The rest of the vessel has no high-grade stenosis Left circumflex: This is a nondominant vessel giving rise to a very proximal obtuse marginal branch, the second obtuse marginal branch is in the mid segment. The left circumflex has mild plaque of 10-20% with no high-grade stenosis. RCA: This is a large dominant vessel, bifurcating into PDA and PLV. The stented segment in the proximal mid and distal RCA are patent with no evidence of thrombosis. Left Ventriculogram: Not performed Hemodynamics: There was no gradient across the aortic valve, LVEDP was 10-14 Conclusion: 1. Patent stent of the RCA 2. Significant disease in the proximal and mid LAD 3. Successful stenting of the LAD with reduction of the stenosis from 80% to 0% in the midsegment and 70% to 0% in the proximal segment 4. Normal LVEDP Recommendations: I have recommended to continue dual antiplatelet treatment with aspirin and Effient for at least 1 year without any interruption, aggressive coronary risks modification will be continued., The findings and the recommendations were discussed with the patient and the family and they were in full understanding and agreement. Duration of sedation is 42 minutes.
[2021-09-23] MEDS ORDERED: lisinopriL 5 MG TAB PO SCH (09:00)
[2021-09-23] MEDS ORDERED: METOPROLOL TARTRATE 25 MG TAB PO SCH (09:00)
[2021-09-23] MEDS ORDERED: amLODIPine 5 MG TAB ONE (12:32)
[2021-09-23 15:26] VITALS: RESP 16
[2021-09-23 15:27] VITALS: BP 182/80; PULSE 70
[2021-09-23] MEDS ORDERED: ATORVASTATIN 80 MG TAB PO SCH (21:00)
[2021-09-24] MEDS ORDERED: ASPIRIN 81 MG PO SCH (09:00)
[2021-09-24] MEDS ORDERED: PRASUGREL 10 MG TAB PO SCH (09:00)
== END 2021-09-23 12:57 | disposition home or self-care (01) ==
LOC: CATHCVL 05:59
PROVIDERS: ATTEND Internal Medicine Interventional Cardiology
DX: I25.10 Atherosclerotic heart disease of native coronary artery without angina pectoris (principal); I25.83 Coronary atherosclerosis due to lipid rich plaque; Z95.5 Presence of coronary angioplasty implant and graft; E78.5 Hyperlipidemia, unspecified; Z20.822 Contact with and (suspected) exposure to COVID-19
CPT/HCPCS: 93458; 87635; C9600; C1769 ×3; C1887; C1894; C1725 ×2; C1874 ×2; J2001; J3010; J1644; Q9967 ×2

== ENCOUNTER 2022-06-02 06:21 | Day surgery (SDC) | payer BC ==
[~2022-06-02 06:21] MED LIST changes: -ATORVASTATIN 80 MG TAB PO STA; -HEPARIN SODIUM,PORCINE 10,000 UNIT in SODIUM CHLORIDE 0.9% 1,000 ML IRRIGATION PRN; -HEPARIN SODIUM,PORCINE 2,500 UNIT in SODIUM CHLORIDE 0.9% 250 ML IRRIGATION PRN
[2022-06-02] MEDS ORDERED: PRASUGREL 10 MG TAB PO STA (06:46)
[2022-06-02] MEDS ORDERED: lisinopriL 5 MG TAB PO STA (06:53)
[2022-06-02] MEDS ORDERED: METOPROLOL TARTRATE 25 MG TAB PO STA (06:53)
[2022-06-02 06:54] VITALS: RESP 18; TEMP 98
[2022-06-02] MEDS ORDERED: VERAPAMIL 2.5 MG/ML 2 ML AMP ONE (07:17)
[2022-06-02] MEDS ORDERED: fentaNYL (PF) 50 MCG/ML 2 ML AMP ONE (07:24)
[2022-06-02] MEDS ORDERED: HEPARIN SODIUM 1,000 UN/ML (10ML VL) ONE (07:24)
[2022-06-02] MEDS ORDERED: fentaNYL (PF) 50 MCG/ML 2 ML AMP IV ONE (07:53)
[2022-06-02] MEDS ORDERED: LIDOCAINE 1% INJ 10MG/ML (5 ML VIAL-PF) SQ ONE (07:56)
[2022-06-02] MEDS ORDERED: VERAPAMIL SYRINGE (5 MG/10 ML) INTRAARTER ONE (07:57)
[2022-06-02] MEDS: HEPARIN SODIUM 1,000 UN/ML (10ML VL) IV ONE ×2 (08:03→08:07)
[2022-06-02] MEDS ORDERED: IOPAMIDOL-370 125ML BTL INJ ONE (08:25)
[2022-06-02] MEDS ORDERED: RX INFO: IV CONTRAST WAS GIVEN 1 EACH MISC MISCELLANE PRN (08:33)
[2022-06-02] MEDS ORDERED: NITROGLYCERIN SL TABS 0.4 MG TAB SUBLINGUAL PRN ×2 (08:33→08:34)
[2022-06-02] MEDS ORDERED: ZOLPIDEM 5 MG TAB PO PRN (08:33)
[2022-06-02] MEDS ORDERED: ATROPINE SULFATE 0.1 MG/ML 10ML SYRINGE IV PRN (08:33)
[2022-06-02] MEDS ORDERED: MAG HYDROX/AL HYDROX/SIMETH 30 ML CUP PO PRN (08:33)
--- NOTE | 2022-06-02 08:41 | P.CARDCATH ---
Date of Procedure: 06/02/22 Description of Procedure: Cardiac Catheterization: The patient is a 67-year-old female with known history of CAD status post stenting of the LAD and the RCA in August 2021 has been complaining of chest discomfort and had an abnormal MPI. Recommendations were made regarding cardiac catheterization, the risks and the complications were discussed with the patient who is in full understanding and agreement. Procedure Description: Patient was brought to mill laborer in fasting semi-sedated state after receiving Fentanyl and Benadryl achieiving moderate conscious sedated state. Using Xylocaine Anesthesia and Seldinger technique, a 6-Pakistani sheath was introduced in the right radial artery . Subsequently, selective coronary angiography was performed using a 5-Pakistani 3.5 bend left Gayle catheter and for bend right Gayle catheter. Multiple views of the coronary artery including hemiaxial views were obtained. The 5-Pakistani pigtail catheter was used to cross the aortic valve and LVEDP was calculated. After removing the catheters a 6-Pakistani 0.75 AL guiding catheter was introduced and the right coronary ostium was cannulated subsequently a 0.014 BMW J-wire was positioned in the distal PDA, subsequently a 2.75 x 18 mm Xience emmanuel point stent was advanced and dilated at 14 stephan. After removing the wire images were obtained and revealed successful stenting. Following that, catheter and sheath were removed. Hemostasis was obtained with deployment of TR band . There was no immediate complication. Patient was returned to room in stable condition. Of note, the patient received a total of 5500 units of intravenous heparin as well as intra-arterial verapamil. She was continued and Effient and her ACT was monitored. She had chest discomfort and EKG changes that resolved at the end of the procedure. Findings: Left main: This is a large size vessel, bifurcating into LAD and left circumflex, left main has no high-grade stenosis LAD: This is a large size vessel, reaching to the apex. The stented segment in the proximal LAD is patent there is a 20% plaque distal to the stent. The mid segment stent is patent with no in-stent restenosis. Left circumflex: This is a nondominant vessel, giving rise to 2 obtuse marginal branch, the first one is very proximal. The left circumflex and its branches have no evidence of high-grade stenosis. RCA: This is a large dominant vessel bifurcating distally into PDA and PLV. The stents in the proximal, mid and distal RCA are patent. There is about 20-30% plaque in the distal mid segment, prior to the bifurcation there is an 80% stenosis, the rest of the vessel has no high-grade stenosis. Left Ventriculogram: Not performed Hemodynamics: There was no gradient across the aortic valve , LVEDP was 12-15 mmHg Conclusion: 1. Patent stent in the proximal and mid LAD with mild plaque in the proximal LAD 2. Patent stent in the RCA with significant stenosis in the distal RCA, distant to the stent 3. No significant obstructive disease in the left circumflex 4. Successful stenting of the distal RCA with reduction of stenosis from 80% to 0% Recommendations: The patient will continue on aspirin and Effient for 6 months without any interruption in addition to aggressive coronary risks modification. The findings and the recommendations were discussed with the patient and the family and they were in full understanding and agreement. Duration of sedation is 33 minutes.
[2022-06-02 11:32] VITALS: BP 135/62; PULSE 53
[2022-06-02] MEDS ORDERED: lisinopriL 5 MG TAB PO SCH (21:00)
[2022-06-02] MEDS ORDERED: METOPROLOL TARTRATE 25 MG TAB PO SCH (21:00)
[2022-06-02] MEDS ORDERED: ATORVASTATIN 80 MG TAB PO SCH (21:00)
[2022-06-03] MEDS ORDERED: ASPIRIN 81 MG PO SCH (09:00)
[2022-06-03] MEDS ORDERED: LORATADINE 10 MG TAB PO SCH (09:00)
[2022-06-03] MEDS ORDERED: PRASUGREL 10 MG TAB PO SCH (09:00)
== END 2022-06-02 12:50 | disposition home or self-care (01) ==
LOC: CATHCVL 06:21
PROVIDERS: ATTEND Internal Medicine Interventional Cardiology
DX: I25.10 Atherosclerotic heart disease of native coronary artery without angina pectoris (principal); E78.5 Hyperlipidemia, unspecified; I25.9 Chronic ischemic heart disease, unspecified; Z95.5 Presence of coronary angioplasty implant and graft; Z82.49 Family history of ischemic heart disease and other diseases of the circulatory system; Z79.01 Long term (current) use of anticoagulants; Z79.82 Long term (current) use of aspirin; Z79.899 Other long term (current) drug therapy; Z98.890 Other specified postprocedural states
CPT/HCPCS: 93458; 99152; 99153; C9600; C1769 ×3; C1887; C1874; J2001; J3010; J1644; Q9967

== ENCOUNTER → 2022-10-05 | Outpatient (CLI) | payer BC ==
--- NOTE | 2022-10-06 08:42 | MM ---
Reason for Exam: Screening (asymptomatic). Last mammogram was performed 4 year(s) and 3 month(s) ago. Patient History: Menarche at age 17. First Full-Term at age 29. Postmenopausal. Risk Values: Maral 5 year model risk: 1.7%. NCI Lifetime model risk: 6.3%. Prior Study Comparison: 06/12/2015 Bilateral Screening Mammogram, [facility]. 07/11/2018 Bilateral Screening Mammogram, [facility]. 08/26/2018 Right Diagnostic Mammogram, [facility]. Tissue Density: The breast tissue is heterogeneously dense. This may lower the sensitivity of mammography. Findings: Analyzed By CAD. Increased asymmetric density upper inner left breast 3 cm from the nipple. Additional views are recommended. Stable benign calcifications bilaterally. Additional asymmetric density lower central right breast 4.2 cm from the nipple. Additional views are recommended. Overall Assessment: Incomplete: need additional imaging evaluation, BI-RAD 0 Management: Diagnostic Mammogram of both breasts. . Patient should continue monthly self-breast exams. A clinical breast exam by your physician is recommended on an annual basis. This exam should not preclude additional follow-up of suspicious palpable abnormalities. Note on Maral scores and lifetime risk: 1. A Maral score greater than 3% is considered moderate risk. If this is the case, consider specialist referral to assess eligibility for a risk reducing agent. 2. If overall lifetime risk for the development of breast cancer is 20% or higher, the patient may qualify for future screening with alternating mammogram and breast MRI. Electronically signed and approved by: Franklin Delvalle M.D. Radiologis
== END | disposition home or self-care (01) ==
LOC: RADMAMWWP 13:44
PROVIDERS: ATTEND Pediatrics
DX: Z12.31 Encounter for screening mammogram for malignant neoplasm of breast (principal); Z78.0 Asymptomatic menopausal state
CPT/HCPCS: 77067

== ENCOUNTER → 2023-09-20 | Outpatient (CLI) | payer MEDICARE, OTHER ==
[2023-09-20 17:19] LABS: Blood Urea Nitrogen 12.8 mg/dL (9.0-27.0); Carbon Dioxide 27.2 mmol/L (21.6-31.8); Chloride 101 mmol/L (96-109); Chol/HDL Ratio 2.78 Ratio; Glucose 100 mg/dL (70-110); Potassium 4.1 mmol/L (3.5-5.5); Sodium 142 mmol/L (135-145)
[2023-09-20 17:20] LABS: ALT 31 U/L (8-44); AST 33 U/L (13-35); Albumin 4.7 g/dL (3.8-4.9); Albumin/Globulin Ratio 1.81 Ratio (1.60-3.17); Alkaline Phosphatase 36 U/L (41-126); Calcium 9.7 mg/dL (8.7-10.3); Globulin 2.6 g/dL (1.6-3.3); Total Bilirubin 0.6 mg/dL (0.3-1.2); Total Protein 7.3 g/dL (6.2-8.2)
== END | disposition home or self-care (01) ==
LOC: LABWHC1 09:22
PROVIDERS: ATTEND Nurse Practitioner Adult Health
DX: I10 Essential (primary) hypertension (principal); E78.2 Mixed hyperlipidemia
CPT/HCPCS: 36415; 80053; 80061

== ENCOUNTER → 2023-12-29 | Outpatient (CLI) | payer MEDICARE, OTHER ==
--- NOTE | 2023-12-29 10:07 | MM ---
Reason for Exam: Follow-up at short interval from prior study. Last mammogram was performed 1 year(s) and 2 month(s) ago. Patient History: Menarche at age 17. First Full-Term at age 29. Hysterectomy at age 58. Postmenopausal. Risk Values: Maral 5 year model risk: 1.7%. NCI Lifetime model risk: 6.1%. Tissue Density: The breasts are heterogeneously dense, which may obscure small masses. Findings: Analyzed By CAD. Centrally located asymmetric density right breast incompletely disperses on on additional views. Further ultrasound evaluation recommended. No persisting at the malleoli on the left. Findings on this side compatible with superimposition shadow. Overall Assessment: Incomplete: need additional imaging evaluation, BI-RAD 0 Management: Diagnostic Breast Ultrasound of the right breast. [facility], , 12/29/2023 10:05 AM. Electronically signed and approved by: Vick Shoemaker M.D. Radiologist
--- NOTE | 2023-12-29 10:14 | USB ---
Reason for Exam: Additional evaluation requested from abnormal screening. Patient History: Menarche at age 17. First Full-Term at age 29. Hysterectomy at age 58. Postmenopausal. Risk Values: Maral 5 year model risk: 1.7%. NCI Lifetime model risk: 6.1%. Technique: Method: Targeted. Prior Study Comparison: 07/11/2018 Bilateral Screening Mammogram, [facility]. 08/26/2018 Right Diagnostic Mammogram, [facility]. 10/05/2022 Bilateral MG screening mammo w CAD, [facility]. Findings: The lower section of the breast of the right breast, the axilla of the right breast and the retroareolar of the right breast were scanned. Targeted ultrasound right breast subareolar, periareolar, and axillary regions. No suspicious solid or cystic lesion or axillary lymphadenopathy. Overall Assessment: Probably benign, BI-RAD 3 Management: Diagnostic Mammogram of the right breast in 6 months. Further clinical management of patient's lateral left breast pain. A clinical breast exam by your physician is recommended on an annual basis and results should be correlated with mammographic findings. This exam should not preclude additional follow-up of suspicious palpable abnormalities. Results were given to the patient verbally at the time of exam. [facility], , 12/29/2023 10:12 AM. Electronically signed and approved by: Vick Shoemaker M.D. Radiologist
== END | disposition home or self-care (01) ==
LOC: RADMAMWWP 09:09
PROVIDERS: ATTEND Pediatrics
CPT/HCPCS: 77062; 77066